=== PATIENT | female | born 1990 | race Caucasian/White ===

== ENCOUNTER → 2018-10-27 | Outpatient (CLI) | payer OTHER ==
[~2018-10-27] MED LIST: ALBUTEROL SULFATE 2.5 MG/3 ML NEBU. NEB ONE
--- NOTE | 2018-10-27 16:45 | RAD ---
Chest, 2 views, 10/27/2018: HISTORY: Asthma, shortness of breath The lungs are hyperexpanded. The heart size is normal. No pulmonary infiltrate is seen. There is no evidence of pleural fluid. IMPRESSION: 1. Hyperexpansion the lungs compatible with the given history of asthma. 2. No acute infiltrates. Electronically signed by: Duane Blake MD (10/27/2018 4:42 PM) [facility]
== END | disposition home or self-care (01) ==
LOC: PF 07:37
PROVIDERS: ATTEND Surgery
DX: J45.909 Unspecified asthma, uncomplicated (principal)
CPT/HCPCS: 71046; 94060; J7613